=== PATIENT | male | born 2000 | race Hispanic/Latino ===

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

== ENCOUNTER 2022-07-08 22:58 | Emergency (ER) | payer OTHER, MEDICAID, SELFPAY ==
[2022-07-08 23:06] VITALS: BP 129/77; PULSE 81; RESP 16; TEMP 36.7; O2SAT 99
--- NOTE | 2022-07-08 23:25 | PC.NURSE ---
Patient denies any visual changes, states only discomfort and constant blinking.
--- NOTE | 2022-07-09 00:02 | ED.EYEPROB ---
HPI - Eye Problem General Chief complaint: Eye Problems Stated complaint: foreign body in left eye Time Seen by Provider: 07/08/22 23:41 History of Present Illness HPI Narrative: 22-year-old male here for evaluation of left eye irritation for the past 30 minutes after he got some dust in his left eye while at work. States that he feels a scratchy sensation in his left eye. Denies any blurry vision. He is supposed to wear glasses but is not currently wearing them. Denies any discharge from his eye. Was told he had to come to the ED by his employer because this happened at work. Related Data Allergies Allergy/AdvReac Type Severity Reaction Status Date / Time No Known Allergies Allergy Verified 07/08/22 23:10 Review of Systems Review of Systems: Gen: Denies fevers or chills Eyes: reports left eye irritation. Denies eye pain or visual change ENT: Denies congestion Respiratory: Denies shortness of breath or cough CV: Denies chest pain or palpitations GI: Denies abdominal pain nausea, emesis or diarrhea : denies burning, urgency, frequency or hematuria Musculoskeletal: Denies back pain or muscle pain Neuro: Denies numbness, tingling, weakness or focal weakness Skin: Denies rash Except as documented, all other systems reviewed and negative [facility] Past Medical History Medical History Healthy adult male Surgical History Surgical History No pertinent past surgical history Social History Social History Gender identity (if verbalized by the patient): Male Exam Narrative: Gen: Alert, oriented, no acute distress Eyes: Left eye is slightly injected. No visualized foreign body; eyelids swept and everted. Fluorescein exam without obvious area of uptake. [place] sign negative. EOMI, no icterus Pulm: Respirations even and unlabored, symmetric thorax expansion, no audible stridor or visible cyanosis CV: Regular rate per telemetry GI: No distension, no voluntary/involuntary guarding Neuro: AOx4, moves all extremities without apparent difficulty or weakness, follows commands Skin: No jaundice, no visible bruising, rashes, lesions or wounds on exposed skin Psych: Normal mood/affect, insight/judgement good, adequate fund of knowledge, recent/remote memory intact Course Vital Signs Vital signs: Vital Signs Temperature 98.1 F 07/08/22 23:06 Pulse Rate 81 07/08/22 23:06 Respiratory Rate 16 07/08/22 23:06 Blood Pressure 129/77 07/08/22 23:06 Pulse Oximetry 99 07/08/22 23:06 Oxygen Delivery Room Air 07/08/22 23:06 Temperature 98.1 F 07/08/22 23:06 Pulse Rate 81 07/08/22 23:06 Respiratory Rate 16 07/08/22 23:06 Blood Pressure 129/77 07/08/22 23:06 Pulse Oximetry 99 07/08/22 23:06 Oxygen Delivery Room Air 07/08/22 23:06 MDM - Eye Problem MDM Narrative Medical decision making narrative: 22-year-old male here for evaluation of left eye irritation after having dust blown in it at work. Here, he is nontoxic-appearing with normal vital signs, no foreign body visualized in eye, fluorescein stain unremarkable. Visual acuity unreliable as he is not wearing his glasses. He was advised to use OTC eye drops for discomfort and encouraged him to wear his glasses. He was given reasons to return to the ED and he voiced understanding. Discharge Plan Discharge Clinical Impression: Sensation of foreign body in eye Patient Disposition: Home, Self-Care Condition: Stable Instructions: Antibiotic Form, Eye Pain (ED) Additional Instructions: There was no evidence of a corneal abrasion or foreign body on your exam. Use the eye drops as needed for your comfort. Return to the emergency room if you develop new blurry vision in your eye, your eye becomes very painful. Please wear your glasses, do not use contact lense
== END 2022-07-09 00:36 | disposition home or self-care (01) ==
PROVIDERS: Emergency Provider Emergency Medicine; PCP Emergency Medicine
DX: H57.89 Other specified disorders of eye and adnexa (principal)
CPT/HCPCS: 99283

== ENCOUNTER 2022-08-19 16:32 | Emergency (ER) | payer OTHER, MEDICAID, SELFPAY ==
[2022-08-19] VITALS (9 sets, daily range): BP systolic 118–152; BP diastolic 74–83; PULSE 76–90; RESP 16–23; TEMP 36.3–36.8; O2SAT 99–100
--- NOTE | ~2022-08-19 | US_ITS ---
EXAMINATION: US venous doppler LE RT DATE: 08/19/2022 18:21 INDICATION: Right lower limb numbness TECHNIQUE: Jo scale images without and with compression and Doppler images of the right lower extre mity veins were obtained. COMPARISON: None FINDINGS: The right common femoral vein, profunda femoral vein, femoral vein, popliteal vein, peronea l trunk, posterior tibial veins, and greater saphenous vein are patent. IMPRESSION: 1. Patent right lower extremity veins. No evidence of deep venous thrombosis. Reviewed, dictated and finalized at location A.
--- NOTE | ~2022-08-19 | XR_ITS ---
EXAMINATION: XR chest 2V DATE: 08/19/2022 17:41 INDICATION: Heart palpitations TECHNIQUE: PA and lateral views of the chest are obtained. COMPARISON: 03/29/2020 FINDINGS: The lungs are free of acute opacities. No pleural effusion or pneumothorax. The cardiomedia stinal silhouette is normal. The visualized bones and soft tissues are unremarkable. IMPRESSION: 1. No acute cardiopulmonary abnormality. Reviewed, dictated and finalized at location A.
--- NOTE | 2022-08-19 17:24 | ECG_ITS ---
Measurements Intervals [place] Rate: 80 P: 68 UT: 150 QRS: 79 QRSD: 89 T: 49 QT: 333 QTc: 385 Interpretive Statements SINUS RHYTHM ST ELEVATION IN DIFFUSE LEADS- PROBABLY EARLY REPOLARIZATION BORDERLINE ECG COMPARED TO ECG 03/29/2020 13:55:58 NO SIGNIFICANT CHANGES Electronically Signed On 08-19-2022 21:41:01 CDT by Yonatan Galicia D.O.
--- NOTE | 2022-08-19 17:40 | ED.GENADULT ---
HPI - General Adult General Chief complaint: Unspecified Stated complaint: OD on adderoll Time Seen by Provider: 08/19/22 17:17 History of Present Illness HPI narrative: 22-year-old male here for evaluation of right leg numbness for the past 12 hours. Patient expresses concern for blood clot is why he presented to the ED today. Has noted some intermittent pain in his calf. No history of DVT/PE. No chest pain or shortness of breath. Patient states that he took 150 mg of Adderall 3 nights ago; does not have a prescription for this medicine. No fevers, chills, SOB, nausea, vomiting, leg swelling. Related Data Allergies Allergy/AdvReac Type Severity Reaction Status Date / Time No Known Allergies Allergy Verified 07/08/22 23:10 Review of Systems Review of Systems: Gen: Denies fevers or chills Eyes: Denies eye pain or visual change ENT: Denies congestion Respiratory: Denies shortness of breath or cough CV: Denies chest pain or palpitations GI: Denies abdominal pain nausea, emesis or diarrhea : denies burning, urgency, frequency or hematuria Musculoskeletal: Reports right leg numbness and tingling. Denies back pain or muscle pain Neuro: Denies numbness, tingling, weakness or focal weakness Skin: Denies rash Except as documented, all other systems reviewed and negative PMFSH Past Medical History Medical History Healthy adult male Surgical History Surgical History No pertinent past surgical history Social History Social History Gender identity (if verbalized by the patient): Male Exam Narrative: APPEARANCE: Well appearing, no pain in distress, well-nourished. Head: Normocephalic and atraumatic. EYES: PERRLA/EOMI, conjunctivae clear NOSE: No nasal drainage EARS: External ear normal in appearance THROAT: Oropharynx is clear. Mucous membranes are moist. NECK: Supple. No adenopathy, no masses. RESPIRATORY: Airway patent, respirations nonlabored. Clear to auscultation bilaterally, no rales, rhonchi, wheezing. CARDIOVASCULAR: 2+ DP and PT pulses bilaterally. Regular rate and rhythm without murmurs, rubs, or gallops. ABDOMINAL: Normoactive bowel sounds. Soft, nontender, nondistended. No rebound tenderness or guarding. MUSCULOSKELETAL: Full range of motion in bilateral lower extremities. 5 out of 5 strength in bilateral lower extremities. Moves all extremities well. No edema. NEURO: Normal speech. No focal neurologic deficits. SKIN: Skin is warm and dry. No rashes. PSYCHIATRIC: Normal affect/mood. Course Vital Signs Vital signs: Vital Signs Temperature 98.2 F 08/19/22 16:42 Pulse Rate 90 08/19/22 16:42 Respiratory Rate 18 08/19/22 16:42 Blood Pressure 152/81 H 08/19/22 16:42 Pulse Oximetry 99 08/19/22 16:42 Oxygen Delivery Room Air 08/19/22 16:42 Temperature 98.3 F 08/19/22 18:56 Pulse Rate 84 08/19/22 18:56 Respiratory Rate 16 08/19/22 18:56 Blood Pressure 118/74 08/19/22 18:56 Pulse Oximetry 100 08/19/22 18:56 Oxygen Delivery Room Air 08/19/22 16:42 Medical Decision Making MDM Narrative Medical decision making narrative: 22-year-old male here for evaluation of numbness and tingling in his lower extremity for the past day, patient presents due to concern for DVT. Patient's leg is normal. On exam he has strong distal pulses, he has 5 out of 5 strength and sensation intact throughout the extremity. Ultrasound negative for DVT. Basic labs unremarkable. Chest x-ray is clear. EKG is nonischemic, UDS is positive for cannabinoids. Unclear etiology for patient's symptoms, but doubt life or limb threatening event. Patient was reassured and encouraged to follow-up with his primary care provider. He was given return precautions and he voiced understanding. Vital Signs Vital Signs: Vital
[2022-08-19 17:43] LABS: Benzodiazepines Screen Urine Negative (Negative)
[2022-08-19 17:44] LABS: Basophils Absolute Auto 0.1 K/mm3 (0.0-0.1); Eosinophils Absolute Auto 0.2 K/mm3 (0-0.3); Eosinophils Percent Auto 3.3 % (0-4.4); Hematocrit 43.1 % (42.0-52.0); Hemoglobin 14.8 g/dL (14.0-18.0); Immature Granulocyte Absolute 0.01 K/mm3 (0.00-0.031); Immature Granulocyte Percent A 0.2 % (0-0.5); Lymphocytes Absolute Auto 1.47 K/mm3 (0.9-3.2); Lymphocytes Percent Auto 28.9 % (18.3-44.2); Mean Corpuscular HGB Conc 34.3 g/dl (32-36); Mean Corpuscular Volume 93.3 fl (80-100); Mean Platelet Volume 9.7 fl (7.4-10.4); Monocytes Absolute Auto 0.4 K/mm3 (0.1-0.6); Monocytes Percent Auto 8.3 % (2.6-8.5); Neutrophils Percent Auto 58.3 % (45.5-73.1); Platelet Count Result 267 k/mm3 (150-375); Red Blood Count 4.62 M/mm3 (4.6-6.20); Red Cell Distribution Width 11.9 % (11.5-14.5); White Blood Count 5.1 K/mm3 (4.5-10.0)
[2022-08-19 17:48] LABS: Barbiturate Screen Urine Negative (Negative); Cannabinoid Screen Urine Positive (Negative); Cocaine Screen Urine Negative (Negative); Methadone Screen Urine Negative (Negative); Opiate Screen Urine Negative (Negative); Phencyclidine Screen Urine Negative (Negative)
[2022-08-19 17:53] LABS: Amphetamine Screen Urine Negative (Negative)
[2022-08-19 17:58] LABS: Alanine Aminotransferase 19 U/L (6-50); Albumin Level 4.5 g/dL (3.5-5.1); Alkaline Phosphatase 75 U/L (38-126); Anion Gap 11 mmol/L (8-16); Aspartate Amino Transferase 24 U/L (17-59); Bilirubin,Total 1.1 mg/dL (0.2-1.3); Blood Urea Nitrogen 10 mg/dL (9-20); Calcium 9.1 mg/dL (8.4-10.2); Carbon Dioxide 27 mmol/L (22-30); Chloride 102 mmol/L (98-107); Estimated Glomerular Filt Rate > 60; Glucose 97 mg/dL (65-110); Potassium 3.5 mmol/L (3.4-5.0); Sodium 140 mmol/L (137-145)
== END 2022-08-19 19:05 | disposition home or self-care (01) ==
PROVIDERS: Emergency Medicine; Physician Assistant; Emergency Provider General Practice; PCP Emergency Medicine
DX: R20.0 Anesthesia of skin (principal); M79.604 Pain in right leg
CPT/HCPCS: 36415; 71046; 80053; 80307; 85025; 93005; 93971; 99284

== ENCOUNTER 2023-08-22 06:25 | Emergency (ER) | payer BC, SELFPAY ==
--- NOTE | ~2023-08-22 | XR_ITS ---
Portable chest x-ray Comparison: 08/19/2022 Clinical History: Palpitations Findings: Lungs are clear, without focal consolidation or pleural effusion. Cardiomediastinal silho uette is stable. Bones and soft tissues are unremarkable. Impression: Normal chest. Reviewed, dictated and finalized at [facility]. Impression: Normal chest.
--- NOTE | 2023-08-22 06:26 | ECG_ITS ---
Measurements Intervals [place] Rate: 80 P: 43 ID: [id number] QRS: 45 QRSD: 91 T: 15 QT: 328 QTc: 379 Interpretive Statements SINUS RHYTHM POSSIBLE RIGHT VENTRICULAR CONDUCTION DELAY [RSR (QR) IN V1/V2] COMPARED TO ECG 08/22/2023 06:32:25 NO SIGNIFICANT CHANGES Electronically Signed On 08-22-2023 12:20:02 CDT by Jaswant Dukes M.D.
[2023-08-22 06:29] VITALS: BP 139/74; PULSE 103; RESP 16; TEMP 36.7; O2SAT 100
[2023-08-22 06:43] VITALS: PULSE 75
--- NOTE | 2023-08-22 07:42 | ED.ARRPALP ---
HPI - Arrhythmia/Palpitations General Chief Complaint: Arrhythmia/Palpitations Stated Complaint: palpitations, numb left arm Time Seen by Provider: 08/22/23 06:57 History of Present Illness HPI narrative: Patient reports that he is having palpitations, he feels like his heart is beating out of his chest, he is quite anxious and is also reporting some numbness/tingling in his hands, he does state that he has been stressed recently, he has already tried to cut all caffeine out of his system. Related Data Allergies Allergy/AdvReac Type Severity Reaction Status Date / Time No Known Allergies Allergy Verified 08/22/23 06:43 Review of Systems Review of Systems: CONST: No fever. HEENT: No sore throat C/V: Palpitations RESP: No cough GI: No abdominal pain : No dysuria. M/S: No joint pain. SKIN: No rash. NEURO: Numbness/tingling arms PSYCH: Anxious PMFSH Past Medical History Medical History Healthy adult male Surgical History Surgical History No pertinent past surgical history Social History Social History Gender identity (if verbalized by the patient): Male Exam Narrative: EXAMINATION OF ORGAN SYSTEMS/BODY AREAS: Constitutional: Vital signs per nursing GENERAL: Slightly anxious appearing HEAD: Normal with no signs of head trauma. EYES: EOMI, conjunctiva normal ENT: Hearing grossly intact LUNGS: Slight hyperventilation, normal breath sounds HEART: [Regular rate and rhythm] ABD: [Soft], [nontender to palpation] EXT: Normal range of motion SKIN: [No rashes or lesions.] NEURO: [Alert and oriented x 3. No gross focal sensory or strength deficits.] PSYCH: Slightly anxious affect Course Vital Signs Vital signs: Vital Signs Temperature 98.1 F 08/22/23 06:29 Pulse Rate 103 H 08/22/23 06:29 Respiratory Rate 16 08/22/23 06:29 Blood Pressure 139/74 08/22/23 06:29 Pulse Oximetry 100 08/22/23 06:29 Oxygen Delivery Room Air 08/22/23 06:29 Temperature 98.1 F 08/22/23 06:29 Pulse Rate 75 08/22/23 06:43 Respiratory Rate 16 08/22/23 06:29 Blood Pressure 139/74 08/22/23 06:29 Pulse Oximetry 100 08/22/23 06:29 Oxygen Delivery Room Air 08/22/23 06:29 MDM - Arrhythmia/Palpitations MDM Narrative Medical decision making narrative: Patient presenting here with palpitations. On exam patient is slightly anxious but otherwise does not appear to be ill. I will obtain EKG and chest xray to rule out arrhythmia/ischemia, pneumothorax, or other cause of chest discomfort/palpitation. Chest x-ray on my independent interpretation does not show any acute abnormality, no pneumothorax or consolidation. EKG - 12-Lead: Performed at 0632. Interpreted by me. [Sinus rhythm]. Rate 82. [Normal] axis. CT-interval [normal]. QRS duration [normal]. QTc [normal]. [No ST segment elevation or depression]. [T-wave normal]. Impression: No EKG evidence of acute ischemia or dysrhythmia. Patient tells me while I am in the room that he is currently having the palpitations, he feels like his heart is going to beat out of his chest and he does appear quite anxious, while this is happening I do see that on telemetry his heart rate and rhythm is normal, around 75 to 80 bpm, without any signs of arrhythmia, given this I did reassure him and I do believe that his symptoms are likely more consistent with possible anxiety and perception of palpitations than any cardiac arrhythmia. I did offer either Ativan or hydroxyzine, and patient was quite nervous about using anything that could be addictive such as Xanax, so we will try some hydroxyzine. Chest x-ray on my interpretation does not show any obvious acute abnormality such as pneumothorax or focal consolidation On reevaluation patient is resting comfortably, vital signs sta
[2023-08-22] MEDS: hydrOXYzine HCL 25 MG TABLET PO (07:53)
[2023-08-22 08:10] VITALS: BP 136/89; PULSE 74; RESP 16; O2SAT 98
== END 2023-08-22 08:10 | disposition home or self-care (01) ==
PROVIDERS: Emergency Provider Emergency Medicine; PCP Emergency Medicine
DX: R00.2 Palpitations (principal); F41.9 Anxiety disorder, unspecified; R94.31 Abnormal electrocardiogram [ECG] [EKG]
CPT/HCPCS: 71045; 93005; 99283; A9270

== ENCOUNTER 2024-10-26 03:24 | Emergency (ER) | payer SELFPAY ==
[2024-10-26 03:28] VITALS: BP 136/86; PULSE 74; RESP 18; TEMP 36.8; O2SAT 99
--- NOTE | 2024-10-26 03:51 | ECG_ITS ---
Test Date: 2024-10-26 03:57:36 Measurements Intervals [place] Rate: 64 P: 52 FL: 157 QRS: 73 QRSD: 89 T: 50 QT: 363 QTc: 376 Interpretive Statements SINUS RHYTHM POSSIBLE RIGHT VENTRICULAR CONDUCTION DELAY [RSR (QR) IN V1/V2] No previous ECG available for comparison Electronically Signed On 10-26-2024 14:46:15 [facility] by Anoop Guidry M.D.
[2024-10-26 04:05] VITALS: O2SAT 97
[2024-10-26 05:29] VITALS: BP 117/81; PULSE 81; RESP 15; O2SAT 97
--- NOTE | 2024-10-26 05:30 | PC.NURSE ---
this patient is sitting on the side of the ER stretcher. Patient has normal work of breathing. No signs of distress.
--- NOTE | 2024-10-26 06:18 | PC.NURSE ---
this patient left without being seen. patient informed of the importance of being see for said complaint shortness of breath patient still wants to leave. RN had patient sign AMA form. Patient is ambulatory to ER exit at this time.
--- NOTE | 2024-10-26 07:00 | ED_ITS ---
HPI - SOB/Dyspnea General Chief Complaint: Shortness of Breath/Dyspnea Stated Complaint: sob x2 days when showering, eating Time Seen by Provider: 10/26/24 06:55 History of Present Illness HPI Narrative: NOTE: Signed up to see this patient and chart reviewed but patient not in the room. Inquired with registration and triage in addition the charge nurse also looked into it and appears that patient left without being seen. Therefore this patient was not seen or evaluated by myself. Related Data Allergies Allergy/AdvReac Type Severity Reaction Status Date / Time No Known Allergies Allergy Verified 10/26/24 03:25 [facility] Past Medical History Medical History Healthy adult male Surgical History Surgical History No pertinent past surgical history Social History Social History Gender identity (if verbalized by the patient): Male Exam Narrative: PATIENT NOT SEEN. PHYSICAL EXAM NOT PERFORMED Course Vital Signs Vital signs: Vital Signs Temperature 98.3 F 10/26/24 03:28 Pulse Rate 74 10/26/24 03:28 Respiratory Rate 18 10/26/24 03:28 Blood Pressure 136/86 10/26/24 03:28 Pulse Oximetry 99 10/26/24 03:28 Oxygen Delivery Room Air 10/26/24 03:28 Temperature 98.3 F 10/26/24 03:28 Pulse Rate 81 10/26/24 05:29 Respiratory Rate 15 10/26/24 05:29 Blood Pressure 117/81 10/26/24 05:29 Pulse Oximetry 97 10/26/24 05:29 Oxygen Delivery Room Air 10/26/24 04:05 MDM - SOB/Dyspnea MDM Narrative Medical decision making narrative: In the emergency department they are afebrile with vital signs within normal limits. PERC Rule Age greater than or equal to 50: HR greater than or equal to 100: O2 sat room air <95%: Unilateral leg swelling: Hemoptysis: Recent surgery or trauma less than 4 wks ago requiring tx with general anesthesia: Prior PE or DVT: Hormone use (OCP, HRT or estrogenic hormone use in M/F patients): Discharge Plan Discharge Patient Disposition: Left Without Being Seen Prescriptions: No Action carboxymethylcellulose sodium [Lubricant Dry Eye Relief] 1 % drops, liquid gel 1 drp EACH EYE BID PRN (Reason: dry eye(s)) Qty: 15 0RF Follow-up/Referrals: Martin Nina MD [Primary Care Provider] -
== END 2024-10-26 07:18 | disposition left against medical advice (07) ==
LOC: ANHED 07:10
PROVIDERS: Emergency Provider Student in an Organized Health Care Education/Training Program; PCP Emergency Medicine
DX: R06.02 Shortness of breath (principal)
CPT/HCPCS: 93005; 99199

== ENCOUNTER 2024-10-31 09:50 | Outpatient (CLI) | payer MEDICAID, SELFPAY ==
--- NOTE | ~2024-10-31 | XR_ITS ---
EXAMINATION: XR chest 2V 10/31/2024 10:16 INDICATION: Dyspnea with exertion PROCEDURE: 2 view chest COMPARISON: 08/22/2023 FINDINGS: The lungs are clear. The cardiomediastinal silhouette is within normal limits. There are no pleural effusions. There is no pneumothorax suspected. IMPRESSION: 1: NO ACUTE CARDIOPULMONARY DISEASE. Reviewed, dictated and finalized at location B. [facility]
== END 2024-10-31 09:51 | disposition home or self-care (01) ==
LOC: ANHIMG 10:00
PROVIDERS: Visit Provider Nurse Practitioner Family
DX: R06.00 Dyspnea, unspecified (principal)
CPT/HCPCS: 71046